=== PATIENT | male | born 1995 | race Two or more races ===

== ENCOUNTER 2022-02-28 00:48 | Emergency (ER) | payer BC, OTHER ==
[~2022-02-28] VITALS: Ht 165.1 cm; Wt 95.3 kg
--- NOTE | 2022-02-28 01:07 | NUR ---
DR. MEDLEY AT BEDSIDE, MSE IN PROGRESS.
[2022-02-28] MEDS ORDERED: PARO25TA16 PO ×2 (01:12→01:48)
[2022-02-28 01:54] VITALS: BP 138/87
--- NOTE | 2022-02-28 01:54 | NUR ---
Patient discharged to home in stable condition. Written and verbal after care instructions given. Patient verbalizes understanding of instructions. Stressed follow up or return to ER for worsening s/s. Steady gait.
== END 2022-02-28 01:55 | disposition home or self-care (01) ==
LOC: ER 01:02
DX: S50.862A Insect bite (nonvenomous) of left forearm, initial encounter (principal); W57.XXXA Bitten or stung by nonvenomous insect and other nonvenomous arthropods, initial encounter; Y92.89 Other specified places as the place of occurrence of the external cause; L83 Acanthosis nigricans; F41.9 Anxiety disorder, unspecified; R73.03 Prediabetes
CPT/HCPCS: A4663